=== PATIENT | female | born 1975 | race Caucasian/White ===

== ENCOUNTER 2016-10-28 21:45 | Inpatient (IN) | payer MEDICARE ==
[~2016-10-28] VITALS: Ht 165.1 cm; Wt 73.5 kg
[~2016-10-28 21:45] MED LIST: ACET-704 PO; BRINTELLIX PO; CLON0.5T PO; CLON0.5T3 PO; FLUO20CA16 PO; FLUO20CA8 PO; LEVE500T56 PO; LEVE500T6 PO; LURA40TA PO; LURA80TA PO; MELA3TAB PO; MELO-156 PO; MELO7.5O PO; Nicotine TD; OXCA300T3 PO; TRAZ100T12 PO
--- NOTE | 2016-10-28 21:52 | ED.ADGEN ---
Past History Past Medical History: Alcoholism, Anxiety, Bipolar, Depression, Seizure Past Surgical History: Tubal ligation, Other Smoking: Cigarettes, Less than 1pk/day Alcohol Use: Heavy Drug Use: None Adult General Chief Complaint Chief Complaint " My boy friend is a too good for me.. .. he is too good for me... I am not used having someone who gives a shit... .. and take care of me.. I been so depressed...so I was going to kill myself... I cut my wrist the other days.. and I was going to do it again .. I did cut my wrist a little... but when I went to cut my wrist again.. he grabbed it... and I cut my Rt. hand....".." Yeah I am fucking drunk.. but it is my problem.. boyfriend relationship is a problem.. I am too good for him..I think sometimes.. but most time he is too good for me..." HPI HPI Patient is a 41 year old female who presents with above hx and complaints of depression, suicidal ideation, alcohol intoxication and self cutting. Patient has a 1 x 1 cm circular cut to base of right thumb-causing an avascular avulsion flap of skin. Has some very superficial lacerations to left wrist and healing sutured laceration to left wrist. The patient admits to heavy alcohol use tonight. Consumption of at least 12 beers today. Patient admits to history of depression and anxiety disorder. Hx of suicide attempts as teenage x 2 , one with knife and another with med overdose. .Pt. was advised we were get some baseline labs have her talk to psychiatrist mat. Patient was agreeable but however when ready to have interview, she pretended she was unconscious.. Patient during the sustained attempt to appear unconscious event, had all protective reflexes intact. Did discuss presentation with Dr. Mary Lawson, she advised when she was more responsive she would conduct the interview. This is Pt. second episode of self inflicted lacerations this week. Pt. states she has become more depressed this past month. More thoughts of suicide and some hallucinations or very real like dreams. Pt. depressed and angry with boy friend and their relationship. Recently has had her visitation with son limited. Pt. has had increased insomnia and episodes of panic attacks. Pt. denies any drug use other than alcohol abuse and Rx med.s Pt. does follow with a counselor. Review of Systems Review of Systems Pt. only complaints is depression and anxiety as per HPI Constitutional: Denies fever or chills [] Eyes: Denies change in visual acuity, redness, or eye pain [] HENT: Denies nasal congestion or sore throat [] Respiratory: Denies cough or shortness of breath [] Cardiovascular: No additional information not addressed in HPI [] GI: Denies abdominal pain, nausea, vomiting, bloody stools or diarrhea [] : Denies dysuria or hematuria [] Musculoskeletal: Denies back pain or joint pain [] Integument: Denies rash or skin lesions [] Neurologic: Denies headache, focal weakness or sensory changes [] Endocrine: Denies polyuria or polydipsia [] Family History Family History Pt. refused family hx at this time. Current Medications Current Medications Current Medications Medications (Trade) Dose Ordered Sig/Wilfred Start Time Stop Time Status Last Admin Dose Admin Bupivacaine HCl (Sensorcaine Mpf 0.5%) 30 ml 1X ONCE 10/28/16 22:30 10/28/16 22:31 DC 10/28/16 22:30 30 ML Folic Acid 5 mg STK-MED ONCE 10/28/16 22:41 10/28/16 22:42 DC Lactated Ringer's 1,000 ml @ 1,000 mls/hr Q10H 10/28/16 22:15 10/29/16 01:00 1,000 MLS/HR Lidocaine HCl 20 ml 1X ONCE 10/28/16 22:30 10/28/16 22:31 DC 10/28/16 22:30 20 ML Lorazepam (Ativan) 2 mg 1X PRN PRN 10/29/16 00:15 Multivitamins/ Minerals (Infuvite Adult) 10 ml STK-MED ONCE 10/28/16 22:40 10/28/16 22:41 DC Multivitamins/ Minerals/Folic Acid/Thiamine HCl/ Lactated Ringer's (Infuvite Adult/ Iv Lactated Ringers) 1,011.2 ml @ 1,000 mls/ hr 1X ONCE 10/28/16 22:30 10/28/16 23:30 DC 10/28/16 22:50 1,000 MLS/HR Ondansetron HCl (Zofran) 4 mg PRN Q4HRS PRN 10/29/16 00:15 10/30/16 00:14 Thiamine HCl 200 mg STK-MED ONCE 10/28/16 22:42 10/28/16 22:43 DC Allergies Allergies Allergies Coded Allergies Type Severity Reaction Last Updated Verified Penicillins Allergy Intermediate 06/12/14 No Sulfa (Sulfonamide Antibiotics) Allergy Intermediate 06/12/14 No Physical Exam Physical Exam Constitutional: very intoxicated in appearance. [] HENT: Normocephalic, atraumatic, bilateral external ears normal, oropharynx moist, no oral exudates, nose normal. [] Eyes: PERRLA, EOMI, conjunctiva normal, no discharge. [] Neck: Normal range of motion, no tenderness, supple, no stridor. [] Cardiovascular:Tachycardia Heart rate regular rhythm, no murmur [] Lungs & Thorax: Bilateral breath sounds equal with scattered wheezes on auscultation [] Abdomen: Bowel sounds normal, soft, no tenderness, no masses, no pulsatile masses. Old surgical scars. Skin: Warm, dry, no erythema, no rash. Lacerations as per HPI Back: No tenderness, no CVA tenderness. [] Extremities: No tenderness, no cyanosis, no clubbing, ROM intact, no edema. [] Neurologic: Alert and oriented X 3, no gross motor function deficits,no gross sensory function deficits, dis-coordinated, no focal deficits noted. []Slurred speech. DTR + 2 brachial and patella. Psychologic: Affect depressed and angry, judgement lacks insight, Current Patient Data Lab Results Laboratory Tests Test 10/28/16 17:28 10/28/16 22:20 10/28/16 22:24 10/29/16 00:05 Urine Opiates Screen Neg (NEG) Urine Methadone Screen Neg (NEG) Urine Barbiturates Neg (NEG) Urine Phencyclidine Screen Neg (NEG) Urine Amphetamine/Methamphetamine Neg (NEG) Urine Benzodiazepines Screen Pos (NEG) Urine Cocaine Screen Neg (NEG) Urine Cannabinoids Screen Neg (NEG) Urine Ethyl Alcohol Pos (NEG) White Blood Count 6.6x10^3/uL (4.0-11.0) Red Blood Count 4.26x10^6/uL (3.50-5.40) Hemoglobin 13.4g/dL (12.0-15.5) Hematocrit 40.3% (36.0-47.0) Mean Corpuscular Volume 95fL (79-100) Mean Corpuscular Hemoglobin 32pg (25-35) Mean Corpuscular Hemoglobin Concent 33g/dL (31-37) Red Cell Distribution Width 15.1% (11.5-14.5) H Platelet Count 254x10^3/uL (140-400) Neutrophils (%) (Auto) 52% (31-73) Lymphocytes (%) (Auto) 38% (24-48) Monocytes (%) (Auto) 8% (0-9) Eosinophils (%) (Auto) 1% (0-3) Basophils (%) (Auto) 1% (0-3) Neutrophils # (Auto) 3.5x10^3uL (1.8-7.7) Lymphocytes # (Auto) 2.5x10^3/uL (1.0-4.8) Monocytes # (Auto) 0.5x10^3/uL (0.0-1.1) Eosinophils # (Auto) 0.1x10^3/uL (0.0-0.7) Basophils # (Auto) 0.0x10^3/uL (0.0-0.2) Prothrombin Time 9.9SEC (9.4-11.4) Prothrombin Time INR 1.0 (0.9-1.1) PTT 26SEC (23-33) Maternal Serum HCG Beta Subunit < 1mIU/mL (0-6) Sodium Level 134mmol/L (136-145) L Potassium Level 3.7mmol/L (3.5-5.1) Chloride Level 95mmol/L (98-107) L Carbon Dioxide Level 31mmol/L (21-32) Anion Gap 8 (6-14) Blood Urea Nitrogen 19mg/dL (7-20) Creatinine 1.0mg/dL (0.6-1.0) Estimated GFR (Cockcroft-Gault) 61.1 Glucose Level 88mg/dL (70-99) Calcium Level 8.4mg/dL (8.5-10.1) L Magnesium Level 1.9mg/dL (1.8-2.4) Total Bilirubin 0.2mg/dL (0.2-1.0) Direct Bilirubin 0.1mg/dL (0.0-0.2) Aspartate Amino Transferase (AST) 25U/L (15-37) Alanine Aminotransferase (ALT) 22U/L (14-59) Alkaline Phosphatase 59U/L (46-116) Troponin I Quantitative < 0.017ng/mL (0-0.055) TR-Haj-O-Type Natriuretic Peptide 63pg/mL (0-124) Total Protein 7.7g/dL (6.4-8.2) Albumin 3.6g/dL (3.4-5.0) Lipase 165U/L (73-393) Salicylates Level 6.3mg/dL (2.8-20.0) Salicylate Last Dose Date Unknown Salicylate Last Dose Time Unknown Acetaminophen Level < 2.0mcg/mL (10-30) L Acetaminophen Last Dose Date Unknown Acetaminophen Last Dose Time Unknown Ethyl Alcohol Level 191mg/dL (0-10) H Urine Collection Type Unknown Urine Color Straw Urine Clarity Clear Urine pH 5.5 Urine Specific [place] <=1.005 Urine Protein Neg (NEG-TRACE) Urine Glucose (UA) Negmg/dL (NEG) Urine Ketones (Stick) Negmg/dL (NEG) Urine Blood Neg (NEG) Urine Nitrite Neg (NEG) Urine Bilirubin Neg (NEG) Urine Urobilinogen Dipstick 0.2mg/dL (0.2 mg/dL) Urine Leukocyte Esterase Neg (NEG) Urine RBC Occ/HPF (0-2) Urine WBC Occ/HPF (0-4) Urine Squamous Epithelial Cells Few/LPF Urine Bacteria 0/HPF (0-FEW) O2 Saturation 94% (92-99) Arterial Blood pH 7.37 (7.35-7.45) Arterial Blood pCO2 at Patient Temp 51mmHg (35-46) H Arterial Blood pO2 at Patient Temp 76mmHg (75-108) Arterial Blood HCO3 28mmol/L (21-28) Arterial Blood Base Excess 2mmol/L (-3-3) FiO2 21 EKG EKG I interpretation EKG shows a sinus rhythm at 77 bpm. No findings of acute STEMI with contralateral changes. [] Radiology/Procedures Radiology/Procedures [] Course & Med Decision Making Course & Med Decision Making Pertinent Labs and Imaging studies reviewed. (See chart for details). Discussed presentation, testing and treatment plan with , See report when available. Discussed presentation, testing and tx. plan with Dr. Ohara. Will admit until dextox- from alcohol. Consult with Dr. Lacy in [place] for Depression. [] Final Impression Final Impression 1. Alcohol Intoxication 2. Depression[] 3. Laceration- self cutting 4. Appearance of borderline personality traits 5. Suicidal Ideation 6. Anxiety Disorder 7. Tobacco Abuse 8. Hx. Seizure Disorder Problems: Dragon Disclaimer Dragon Disclaimer This electronic medical record was generated, in whole or in part, using a voice recognition dictation system. TRACY JOHNSON MD Oct 28, 2016 21:52
[2016-10-28] MEDS ORDERED: IV RINGERS SOLUTION,LACTATED 1,000 ML IV SCH (22:15)
[2016-10-28] MEDS ORDERED: BUPIVACAINE MPF 0.5% 30 ML VIAL. SQ ONE (22:30)
[2016-10-28] MEDS ORDERED: MVI, ADULT NO.4 WITH VIT K 10 ML, FOLIC ACID SYRINGE for ER 1 MG, THIAMINE 100 MG in IV... IV ONE ×4 (22:30)
[2016-10-28] MEDS ORDERED: LIDOCAINE 2% 20 ML VIAL. IJ ONE (22:30)
--- NOTE | 2016-10-28 22:36 | EKG ---
[address] [address] Test Date: 2016-10-28 Test Time: 22:35:06 Pat Name: SHALONDA AMOS Department: Room: Gender: F Gambling Counsellor: SHAYNE : 1975 Requested By: TRACY JOHNSON Order Number: [id number] Reading MD: Measurements Intervals [place] Rate: 77 P: 36 MT: 164 QRS: 76 QRSD: 96 T: 53 QT: 376 QTc: 427 Interpretive Statements SINUS RHYTHM NO SPECIFIC ECG ABNORMALITIES RI6.01 Unconfirmed report Compared to ECG 02/21/2015 01:11:03 No significant changes
[2016-10-28] MEDS ORDERED: MVI, ADULT NO.4 WITH VIT K 10 ML VIAL IV ONE (22:40)
[2016-10-28] MEDS ORDERED: FOLIC ACID 5 MG/ML SYRINGE for ER IV ONE (22:41)
[2016-10-28] MEDS ORDERED: THIAMINE 200 MG/2 ML VIAL. IV ONE (22:42)
[2016-10-28 22:46] LABS: BASO % 1 % (0-3); EOS # 0.1 x10^3/uL (0.0-0.7); EOS % 1 % (0-3); HEMATOCRIT 40.3 % (36.0-47.0); HEMOGLOBIN 13.4 g/dL (12.0-15.5); LYMPH # 2.5 x10^3/uL (1.0-4.8); LYMPH % 38 % (24-48); MEAN CORPUSCULAR HEMOGLOBIN 32 pg (25-35); MEAN CORPUSCULAR HGB CONC 33 g/dL (31-37); MEAN CORPUSCULAR VOLUME 95 fL (79-100); MONO # 0.5 x10^3/uL (0.0-1.1); MONO % 8 % (0-9); NEUT # 3.5 x10^3uL (1.8-7.7); NEUT % 52 % (31-73); PLATELET COUNT 254 x10^3/uL (140-400); RED BLOOD COUNT 4.26 x10^6/uL (3.50-5.40); RED CELL DISTRIBUTION WIDTH 15.1 % (11.5-14.5); WHITE BLOOD COUNT 6.6 x10^3/uL (4.0-11.0)
[2016-10-28 22:52] LABS: BARBITURATES NEG (NEG); BENZODIAZEPINES POS (NEG); CANNABINOIDS NEG (NEG); COCAINE NEG (NEG); METHADONE NEG (NEG); OPIATES NEG (NEG); PHENCYCLIDINE NEG (NEG)
[2016-10-28 22:53] LABS: AMPHETAMINE/METHAMPHETAMINE NEG (NEG)
[2016-10-28 22:53] LABS: BILIRUBIN,URINE NEG (NEG); CLARITY,URINE CLEAR; COLOR,URINE STRAW; GLUCOSE,URINE NEG (NEG)
[2016-10-28 22:54] LABS: BACTERIA,URINE 0 /HPF (0-FEW); NITRITE,URINE NEG (NEG); RBC,URINE OCC /HPF (0-2); SQUAMOUS EPITHELIAL CELL,UR FEW /LPF; UROBILINOGEN,URINE 0.2 mg/dL (0.2 mg/dL); WBC,URINE OCC /HPF (0-4)
[2016-10-28 23:07] LABS: ALBUMIN 3.6 g/dL (3.4-5.0); CALCIUM 8.4 mg/dL (8.5-10.1); DIRECT BILIRUBIN 0.1 mg/dL (0.0-0.2); GFR 61.1; MAGNESIUM 1.9 mg/dL (1.8-2.4); POTASSIUM 3.7 mmol/L (3.5-5.1); TOTAL BILIRUBIN 0.2 mg/dL (0.2-1.0); TOTAL PROTEIN 7.7 g/dL (6.4-8.2)
[2016-10-29] VITALS (14 sets, daily range): BP systolic 123–157; BP diastolic 61–93
[2016-10-29 00:05] LABS: SALIC 6.3 mg/dL (2.8-20.0)
[2016-10-29 00:08] LABS: ACETAMIN < 2.0 mcg/mL (10-30)
[2016-10-29 00:13] LABS: BASE EXCESS ABG 2 mmol/L (-3-3); HCO3 ABG 28 mmol/L (21-28); PCO2 ABG 51 mmHg (35-46); PH ABG 7.37 (7.35-7.45); PO2 ABG 76 mmHg (75-108)
[2016-10-29 00:14] LABS: SAT O2 ABG 94 % (92-99)
[2016-10-29] MEDS ORDERED: ONDANSETRON PF 4 MG/2 ML VIAL. IV PRN (00:15)
[2016-10-29] MEDS ORDERED: LORAZEPAM 2 MG/ML VIAL IV PRN (00:15)
[2016-10-29] MEDS: IV RINGERS SOLUTION,LACTATED 1,000 ML IV SCH ×5 (01:00→22:46)
--- NOTE | 2016-10-29 01:01 | ACF ---
Admission Criteria Forms ALCOHOL AND PSYCHOACTIVE SUBSTANCE WITHDRAWAL Clinical Indications for Inpatient Care (Place ' X' for any and all applicable criteria): Ongoing inpatient care may be indicated for substance withdrawal[B][C] with ANY ONE of the following(1)(2)(3)(4)(21): [ ]I. Delirium due to alcohol or sedative[D] withdrawal is present. [ ]II. Marked signs of withdrawal are present as indicated by ANY ONE of the following(15)(22)(23) [ ]a) Heart rate greater than 120 beats per minute is present. [ ]b) Severe vomiting is present (eg, precludes maintenance of oral hydration). [ ]c) Grossly visible tremor is present. [ ]d) Profuse perspiration is present. [ ]e) Temperature greater than 101 degrees F (38.3 degrees C) is present. [ ]f) Other signs of severe withdrawal are present (eg, Altered mental status ) [ ]g) Severe withdrawal identified by standardized assessment score[A] [ ]III. Signs of withdrawal that require continued inpatient treatment as indicated by ANY ONE of the following(15)(22)(23): [ ]a) Inadequate response to pharmacotherapy (eg, benzodiazepines) [ ]b) Outpatient or lower level of care is not feasible or appropriate (eg, unavailable or inappropriate to patient condition or treatment history). [ ]IV. Withdrawal signs with high-risk indicator are present as manifested by ALL of the following[A](15)(22)(23) [ ]a) Signs of withdrawal are present as indicated by ANY ONE of the following: [ ]i. Tachycardia is present. [ ]ii. Nausea or vomiting is present. [ ]iii. Tremor is present. [ ]iv. Increased perspiration is present. [ ]v. Other signs of withdrawal are present. [ ]vi. Withdrawal identified by standardized assessment score [A] [ ]b) Elevated risk due to historical or comorbid factor is present as indicated by ANY ONE of the following: [ ]i. History of delirium due to withdrawal is present. [ ]ii. History of seizures due to withdrawal is present.[E] [ ]iii. Intrinsic seizure disorder (epilepsy) is present. [ ]iv. Patient is . [ ]v. Other significant medical history (eg, severe cardiac disease) is present, which is assessed to be at risk for destabilization due to withdrawal. [ ]V. Serious electrolyte abnormalities (eg, hyponatremia, hypokalemia, hypophosphatemia) requiring correction performable only in inpatient setting(6)(25) [ ]. Severe hypoglycemia requiring glucose infusions performable only in inpatient setting(6) [X]VII. Drug toxicity or instability, such as Altered mental status, respiratory depression, or arrhythmias, that requires inpatient care [ ]VIII. Danger judged unmanageable at lower level of care because of ANY ONE of the following [ ]a) Danger to self [ ]b) Danger to others [ ]c) Grave disability (eg, inability to perform self-care necessary at lower level of care) The original [facility] Care Guidelines content created by [facility] has been revised. The portions of the content which have been revised are identified through the use of italic text or in bold. [facility] Care [facility] has neither reviewed nor approved the modified material. All other unmodified content is copyright [facility] Care [facility]. Please see references footnoted in the original [facility] CareGuidelines edition 2016 Admission Criteria Met?: Yes MOY HERNANDES Oct 29, 2016 01:01
[2016-10-29] MEDS ORDERED: ESTR1TAB39 PO (01:43)
[2016-10-29] MEDS ORDERED: CHOL2000 PO (01:45)
[2016-10-29] MEDS ORDERED: LEVO50TA5 PO (01:46)
[2016-10-29] MEDS ORDERED: MULT-245 PO (01:48)
[2016-10-29] MEDS ORDERED: LIDO700A4 TP (01:51)
[2016-10-29] MEDS ORDERED: LORAZEPAM 1 MG TABLET. ONE (02:26)
[2016-10-29] MEDS: LEVETIRACETAM 500 MG TABLET PO SCH ×3 (02:42→21:25)
[2016-10-29] MEDS ORDERED: LORAZEPAM 1 MG TABLET. PO SCH (03:00)
[2016-10-29] MEDS: LEVOTHYROXINE 50 MCG TABLET PO SCH (06:24)
[2016-10-29 07:02] LABS: ETHANOL 75 mg/dL (0-10); SALIC 7.1 mg/dL (2.8-20.0)
[2016-10-29 07:03] LABS: ACETAMIN < 2.0 mcg/mL (10-30)
[2016-10-29] MEDS ORDERED: LORAZEPAM 1 MG TABLET. PO PRN (08:15)
[2016-10-29] MEDS ORDERED: MULTIVITAMIN I-VITE TABLET. PO SCH (09:00)
[2016-10-29] MEDS ORDERED: [UNRECOGNIZED DRUG - OTHER] PO SCH (09:00)
[2016-10-29] MEDS ORDERED: ESTROGEN ESTER PO SCH (09:00)
[2016-10-29] MEDS ORDERED: TESTOSTERONE PO SCH (09:00)
[2016-10-29] MEDS: MVI, ADULT NO.4 WITH VIT K 10 ML, FOLIC ACID SYRINGE for ER 1 MG, THIAMINE 100 MG in IV... IV SCH ×4 (09:05)
[2016-10-29] MEDS: LIDOCAINE (700MG/PATCH) PATCH. TP SCH (09:06)
[2016-10-29] MEDS: CHOLECALCIFEROL (VITAMIN D3) 1,000 UNIT TABLET PO SCH (09:06)
[2016-10-29] MEDS: NICOTINE 21MG PATCH. TD SCH (10:28)
[2016-10-29] MEDS: KETOROLAC 30 MG/ML VIAL. IV PRN ×2 (11:20→16:39)
--- NOTE | 2016-10-29 14:40 | HP ---
ADMIT DATE: 10/29/2016 REASON FOR ADMISSION: Alcohol intoxication and stabbed self in the thumb, self-cutting. HISTORY OF PRESENT ILLNESS: A 41-year-old female who presented to the Emergency Room where she was found to be intoxicated and also had been self cutting. There were a few other healing lacerations noted. The patient has drunk at least about 12 beers. She states that she was fine 1 minute and then she went off. She got up and went to the kitchen stabbed herself. She also reports hallucinations and hearing things over the last few days. The patient is under the care of Dr. Gong and Dr. Knott her neurologist. She states also that she thinks that the Lyrica that she was put on a couple of weeks ago is the culprit in this feelings of hallucinating, etc. PAST MEDICAL HISTORY: Depression, bipolar disorder, anxiety, hypothyroidism, seizures, tobacco use disorder, and fibromyalgia. MEDICATIONS: The patient stated takes Tylenol, codeine, vitamin D 2000 units a day, clonazepam 0.5 mg at bedtime and 0.5 mg q.i.d., estrogen, testosterone tablet, Prozac 20 mg a day, Keppra 1000 mg twice a day, levothyroxine 50 mcg daily, lidocaine patch b.i.d., Latuda 40 mg daily, Latuda 120 mg at bedtime, melatonin 5 mg daily, Meloxicam 7.5 mg daily, multivitamin 1 daily, Trileptal 300 mg b.i.d., trazodone 200 mg at bedtime, Brintellix 20 mg at bedtime, and Nicoderm patch. SOCIAL HISTORY: The patient recently moved in with her boyfriend 1 week ago. Smokes 1.5 packs per day, down from 2 packs per day. Usually drinks at least 3 beers. Does not drink every day. The patient does smoke marijuana on occasion. REVIEW OF SYSTEMS: Pain all over her body, hurts all over. Denies suicidal ideation, but does state positive for hallucinations and hearing things; visual and auditory hallucinations. OBJECTIVE: VITAL SIGNS: Blood pressure is 144/87, pulse 77, respirations 17, and pulse ox 97% on room air. HEENT: The patient's pupils are normal size, equal, round, and react to light. Extraocular muscles are intact. Nose was patent. Throat was clear. NECK: Supple. LUNGS: Clear to auscultation. CARDIOVASCULAR: Regular rhythm and rate. ABDOMEN: Soft and nontender. EXTREMITIES: Extremities were without edema. The right thumb has some area where the skin has been removed ____ basically. MENTAL STATUS: The patient was calm and cooperative, although she was nervous. She kept looking out to the door, but denies paranoia. She was alert and appropriate. Answer questions appropriately. LABORATORY DATA: Normal CBC and pCO2 was 51 at midnight, otherwise normal. Chemistry profile normal. Coags normal. Urine was dilute. Drug screen positive for alcohol. Benzos to be appropriate. ASSESSMENT: 1. Bipolar disorder. 2. Suicidal gesture. 3. Depression. 4. Anxiety. 5. Alcohol intoxication. 6. Tobacco use disorder. 7. Seizure disorder. 8. Daily alcohol use. 9. Hypothyroidism. 10. Visual and auditory hallucinations. 11. Fibromyalgia. PLAN: Review medications. Psychiatric consult, IV fluids, and we will go from there. We will treat her fibromyalgia with Toradol. PEDRO STARR DO DR: ERICH/didier JOB#: [id number] / [id number]
[2016-10-29] MEDS ORDERED: TOPI-24 PO (16:30)
[2016-10-29] MEDS ORDERED: TIZA4TAB PO (16:30)
[2016-10-29] MEDS ORDERED: DICY20TA3 PO (16:30)
[2016-10-29] MEDS ORDERED: ONDA4TAB12 PO (16:30)
[2016-10-29] MEDS ORDERED: DULO60CA44 PO (16:30)
[2016-10-29] MEDS ORDERED: PREG75CA PO (16:30)
[2016-10-29] MEDS ORDERED: ESTR2TAB PO (16:30)
[2016-10-29] MEDS ORDERED: DIAZ5TAB4 PO (16:30)
[2016-10-29] MEDS ORDERED: DIAZ10TA4 PO (16:30)
[2016-10-29] MEDS ORDERED: LEVE500T6 PO (16:30)
[2016-10-29] MEDS ORDERED: MELA10TA PO (16:30)
[2016-10-29] MEDS ORDERED: tiZANidine 4 MG TABLET. PO PRN (16:45)
[2016-10-29] MEDS: TOPIRAMATE 25 MG TABLET. PO SCH ×2 (16:54→21:24)
--- NOTE | 2016-10-29 20:59 | PDOC ---
Exam Isaias Demential Exam: Isaias Note: Please also refer to the separate dictated note~for this date of service dictated separately.~Patient seen individually. Discussed the patient with Nursing staff reviewed the chart.~Reviewed interim history and current functioning. Reviewed vital signs,~Labs/ Radiology~and current medications noted below. Continue current treatment with the changes noted in the dictated addendum note Assessment: Vital Signs: Vital Signs Date Time Temp Pulse Resp B/P Pulse Ox O2 Delivery O2 Flow Rate FiO2 10/29/16 19:12 98.4 74 16 145/73 97 Room Air I&O Intake and Output 10/29/16 07:00 Intake Total 1507.2 ml Balance 1507.2 ml Intake Oral 250 ml IV Total 1011.2 ml Other 246 ml # Voids 6 # Bowel Movements 1 Labs: Laboratory Tests Test 10/28/16 22:20 10/28/16 22:24 10/29/16 00:05 10/29/16 05:32 White Blood Count 6.6x10^3/uL (4.0-11.0) Red Blood Count 4.26x10^6/uL (3.50-5.40) Hemoglobin 13.4g/dL (12.0-15.5) Hematocrit 40.3% (36.0-47.0) Mean Corpuscular Volume 95fL (79-100) Mean Corpuscular Hemoglobin 32pg (25-35) Mean Corpuscular Hemoglobin Concent 33g/dL (31-37) Red Cell Distribution Width 15.1% (11.5-14.5) H Platelet Count 254x10^3/uL (140-400) Neutrophils (%) (Auto) 52% (31-73) Lymphocytes (%) (Auto) 38% (24-48) Monocytes (%) (Auto) 8% (0-9) Eosinophils (%) (Auto) 1% (0-3) Basophils (%) (Auto) 1% (0-3) Neutrophils # (Auto) 3.5x10^3uL (1.8-7.7) Lymphocytes # (Auto) 2.5x10^3/uL (1.0-4.8) Monocytes # (Auto) 0.5x10^3/uL (0.0-1.1) Eosinophils # (Auto) 0.1x10^3/uL (0.0-0.7) Basophils # (Auto) 0.0x10^3/uL (0.0-0.2) Prothrombin Time 9.9SEC (9.4-11.4) Prothrombin Time INR 1.0 (0.9-1.1) PTT 26SEC (23-33) Maternal Serum HCG Beta Subunit < 1mIU/mL (0-6) Sodium Level 134mmol/L (136-145) L Potassium Level 3.7mmol/L (3.5-5.1) Chloride Level 95mmol/L (98-107) L Carbon Dioxide Level 31mmol/L (21-32) Anion Gap 8 (6-14) Blood Urea Nitrogen 19mg/dL (7-20) Creatinine 1.0mg/dL (0.6-1.0) Estimated GFR (Cockcroft-Gault) 61.1 Glucose Level 88mg/dL (70-99) Calcium Level 8.4mg/dL (8.5-10.1) L Magnesium Level 1.9mg/dL (1.8-2.4) Total Bilirubin 0.2mg/dL (0.2-1.0) Direct Bilirubin 0.1mg/dL (0.0-0.2) Aspartate Amino Transferase (AST) 25U/L (15-37) Alanine Aminotransferase (ALT) 22U/L (14-59) Alkaline Phosphatase 59U/L (46-116) Troponin I Quantitative < 0.017ng/mL (0-0.055) MY-Yjc-R-Type Natriuretic Peptide 63pg/mL (0-124) Total Protein 7.7g/dL (6.4-8.2) Albumin 3.6g/dL (3.4-5.0) Lipase 165U/L (73-393) Thyroid Stimulating Hormone (TSH) 0.325uIU/mL (0.358-3.740) Salicylates Level 6.3mg/dL (2.8-20.0) 7.1mg/dL (2.8-20.0) Salicylate Last Dose Date Unknown Unknown Salicylate Last Dose Time Unknown Unknown Acetaminophen Level < 2.0mcg/mL (10-30) L < 2.0mcg/mL (10-30) L Acetaminophen Last Dose Date Unknown Unknown Acetaminophen Last Dose Time Unknown Unknown Ethyl Alcohol Level 191mg/dL (0-10) H 75mg/dL (0-10) H Urine Collection Type Unknown Urine Color Straw Urine Clarity Clear Urine pH 5.5 Urine Specific [place] <=1.005 Urine Protein Neg (NEG-TRACE) Urine Glucose (UA) Negmg/dL (NEG) Urine Ketones (Stick) Negmg/dL (NEG) Urine Blood Neg (NEG) Urine Nitrite Neg (NEG) Urine Bilirubin Neg (NEG) Urine Urobilinogen Dipstick 0.2mg/dL (0.2 mg/dL) Urine Leukocyte Esterase Neg (NEG) Urine RBC Occ/HPF (0-2) Urine WBC Occ/HPF (0-4) Urine Squamous Epithelial Cells Few/LPF Urine Bacteria 0/HPF (0-FEW) O2 Saturation 94% (92-99) Arterial Blood pH 7.37 (7.35-7.45) Arterial Blood pCO2 at Patient Temp 51mmHg (35-46) H Arterial Blood pO2 at Patient Temp 76mmHg (75-108) Arterial Blood HCO3 28mmol/L (21-28) Arterial Blood Base Excess 2mmol/L (-3-3) FiO2 21 Current Medications: Meds: Current Medications Lactated Ringer's 1,000 ml @ 1,000 mls/hr Q10H IV Last administered on 01:00; Start 10/28/16 at 22:15 Multivitamins/ Minerals/Folic Acid/Thiamine HCl/ Lactated Ringer's (Infuvite Adult/ Iv Lactated Ringers) 1,011.2 ml @ 1,000 mls/ hr 1X ONCE IV Last administered on 10/28/16 22:50; Start 10/28/16 at 22:30; Stop 10/28/16 at 23:30; Status DC Bupivacaine HCl (Sensorcaine Mpf 0.5%) 30 ml 1X ONCE SQ Last administered on 22:30; Start 10/28/16 at 22:30; Stop 10/28/16 at 22:31; Status DC Lidocaine HCl 20 ml 1X ONCE IJ Last administered on 10/28/16 22:30; Start 10/28 at 22:30; Stop 10/28/16 at 22:31; Status DC Multivitamins/ Minerals (Infuvite Adult) 10 ml STK-MED ONCE IV ; Start 10/28/16 at 22:40; Stop 10/28/16 at 22:41; Status DC Folic Acid 5 mg STK-MED ONCE IV ; Start 10/28/16 at 22:41; Stop 10/28/16 at 22:42 ; Status DC Thiamine HCl 200 mg STK-MED ONCE IV ; Start 10/28/16 at 22:42; Stop 10/28/16 at 22 :43; Status DC Ondansetron HCl 4 mg 4 mg PRN Q4HRS PRN IV NAUSEA/VOMITING Last administered on 10/29/16 16:54; Start 10/29/16 at 00:15; Stop 10/30/16 at 00:14 Multivitamins/ Minerals 10 ml/ Folic Acid 1 mg/ Thiamine HCl 100 mg/Lactated Ringer's 1,011.2 ml @ 125 mls/ hr DAILY IV Last administered on 10/29/16 09:05 ; Start 10/29/16 at 09:00 Lactated Ringer's (Iv Lactated Ringers) 1,000 ml @ 160 mls/hr Q6H15M IV Last administered on 10/29/16 16:55; Start 10/29/16 at 01:00 Lorazepam (Ativan) 1 mg QID PO ; Start 10/29/16 at 03:00; Stop 10/29/16 at 08:08; Status DC Lorazepam (Ativan) 2 mg 1X PRN PRN IV seizure; Start 10/29/16 at 00:15 Levetiracetam (Keppra) 1,000 mg BID PO Last administered on 10/29/16 09:06; Start 10/29/16 at 03:00; Stop 10/29/16 at 16:38; Status DC Levothyroxine Sodium (Synthroid) 50 mcg DAILY07 PO Last administered on 06:24; Start 10/29/16 at 07:00 Lidocaine (Lidoderm) 1 patch DAILY TP Last administered on 10/29/16 09:06; Start 10/29/16 at 09:00 Melatonin 6 mg QHS PO ; Start 10/29/16 at 21:00; Stop 10/29/16 at 21:00; Status DC Non-Formulary Medication 2 mg BID PO hormone replacement; Start 10/29/16 at 09:00 ; Stop 10/29/16 at 16:52; Status DC Vitamin D (Vitamin D3) 2,000 unit DAILY PO Last administered on 10/29/16 09:06 ; Start 10/29/16 at 09:00 Multivitamins/ Minerals (I-Elias) 1 tab DAILY PO Last administered on 10/29/16 09:05; Start 10/29/16 at 09:00; Stop 10/29/16 at 17:51; Status DC Lorazepam (Ativan) 1 mg STK-MED ONCE .ROUTE ; Start 10/29/16 at 02:26; Stop at 02:27; Status DC Lorazepam (Ativan) 1 mg PRN QID PRN PO ALCOHOL WITHDRAWAL; Start 10/29/16 at 08: 15 Nicotine (Nicoderm Cq 21mg) 1 patch DAILY TD Last administered on 10/29/16 10: 28; Start 10/29/16 at 09:30 Ketorolac Tromethamine (Toradol) 30 mg PRN Q6HRS PRN IV PAIN Last administered on 10/29/16 16:39; Start 10/29/16 at 09:30; Stop 11/03/16 at 09:29 Clonazepam (Klonopin) 0.25 mg BIDWBKFT/ANJALI PO ; Start 10/30/16 at 08:00; Stop 10/30/16 at 08:00; Status DC Clonazepam (Klonopin) 0.5 mg HS PO ; Start 10/29/16 at 21:00; Stop 10/29/16 at 21: 00; Status DC Fluoxetine HCl (Prozac) 20 mg DAILY PO ; Start 10/30/16 at 09:00; Stop 10/30/16 at 09:00; Status DC Meloxicam (Mobic) 7.5 mg DAILY PO ; Start 10/30/16 at 09:00 Oxcarbazepine (Trileptal) 300 mg BID PO ; Start 10/29/16 at 21:00; Stop 10/29/16 at 21:00; Status DC Trazodone HCl (Desyrel) 200 mg QHS PO ; Start 10/29/16 at 21:00 Non-Formulary Medication 120 mg QHS PO ; Start 10/29/16 at 21:00; Status UNV Non-Formulary Medication 20 mg HS PO DEPRESSION; Start 10/29/16 at 21:00; Stop at 21:00; Status DC Nicotine (Nicoderm Cq 14mg) 1 patch DAILY TD ; Start 10/30/16 at 09:00; Stop 10/30 at 09:00; Status DC Diazepam (Valium) 5 mg BID94 PO ; Start 10/30/16 at 09:00 Dicyclomine HCl (Bentyl) 20 mg PRN Q6HRS PRN PO DIARRHEA; Start 10/29/16 at 16: 45 Duloxetine HCl (Cymbalta) 60 mg HS PO ; Start 10/29/16 at 21:00; Stop 10/29/16 at 21:00; Status DC Estradiol (Estrace) 2 mg BID PO ; Start 10/30/16 at 09:00 Levetiracetam (Keppra) 500 mg BID PO ; Start 10/29/16 at 21:00 Ondansetron HCl (Zofran Odt) 4 mg BID PO ; Start 10/29/16 at 21:00 Pregabalin (Lyrica) 75 mg BID PO ; Start 10/29/16 at 21:00; Stop 10/29/16 at 21:00 ; Status DC Tizanidine HCl (Zanaflex) 4 mg PRN TID PRN PO MUSCLE SPASMS; Start 10/29/16 at 16:45 Topiramate (Topamax) 25 mg BID PO Last administered on 10/29/16t 16:54; Start at 17:15 Diazepam (Valium) 20 mg HS PO ; Start 10/29/16 at 21:00 Melatonin 9 mg HS PO ; Start 10/29/16 at 21:00 Duloxetine HCl (Cymbalta) 90 mg DAILY PO ; Start 10/29/16 at 19:00 Active Scripts Active Reported Lyrica (Pregabalin) 75 Mg Capsule 1 Cap PO BID Diazepam 10 Mg Tablet 20 Mg PO HS Diazepam 5 Mg Tablet 5 Mg PO [id number] Dicyclomine Hcl 20 Mg Tablet 1 Tab PO PRN Q6HRS PRN Ondansetron Odt (Ondansetron) 4 Mg Tab.rapdis 4 Mg PO BID Tizanidine Hcl (Tizanidine HCl) 4 Mg Tablet 4 Mg PO PRN TID PRN Topiramate 25 Mg Tablet 1 Tab PO BID Duloxetine Hcl 60 Mg Capsule.dr 60 Mg PO HS Melatonin 10 Mg Tablet 10 Mg PO HS Estradiol 2 Mg Tablet 1 Tab PO BID Levetiracetam 500 Mg Tablet 1 Tab PO BID Lidoderm (Lidocaine) 700 Mg Adh..patch 700 Mg TP BID Multi Vitamin Daily (Multivitamin) 1 Each Tablet 1 Each PO DAILY Levothyroxine Sodium 50 Mcg Tablet 1 PO DAILY Vitamin D (Cholecalciferol (Vitamin D3)) 2,000 Unit Capsule 1 Cap PO DAILY Latuda (Lurasidone Hcl) 80 Mg Tablet 120 Mg PO QHS Meloxicam 7.5 Mg Tablet 7.5 Mg PO DAILY Diagnosis: Problems: (1) Mental status change (2) Mental status change (3) Alcoholism (4) Seizures (5) Suicidal behavior MARLON OSBORN MD Oct 29, 2016 20:59
[2016-10-29] MEDS ORDERED: CLONAZEPAM 0.5 MG TABLET PO SCH (21:00)
[2016-10-29] MEDS ORDERED: LURASIDONE 40 MG TABLET. PO SCH (21:00)
[2016-10-29] MEDS ORDERED: DIAZEPAM 5 MG TABLET PO SCH (21:00)
[2016-10-29] MEDS ORDERED: DULOXETINE HCL 60 MG CAPSULE.DR. PO SCH (21:00)
[2016-10-29] MEDS ORDERED: BRINTELLIX 20 MG PO SCH (21:00)
[2016-10-29] MEDS ORDERED: PREGABALIN 75 MG CAPSULE PO SCH (21:00)
[2016-10-29] MEDS ORDERED: traZODone 100 MG TABLET. PO SCH (21:00)
[2016-10-29] MEDS ORDERED: MELATONIN 3 MG TABLET PO SCH ×2 (21:00)
[2016-10-29] MEDS: DULOXETINE HCL 30 MG CAPSULE.DR. PO SCH (21:23)
[2016-10-29] MEDS: ONDANSETRON ODT 4 MG TAB.RAPDIS PO SCH (21:24)
[2016-10-29] MEDS: DICYCLOMINE HCL 20 MG TABLET PO PRN (21:55)
[2016-10-30 00:01] VITALS: BP 145/79
[2016-10-30] MEDS: KETOROLAC 30 MG/ML VIAL. IV PRN ×2 (02:45→08:29)
[2016-10-30 04:00] VITALS: BP 179/71
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
--- NOTE | 2016-10-30 05:23 | CONS ---
DATE OF CONSULTATION: 10/29/2016 IDENTIFYING DATA: The patient is a 41-year-old female referred by Dr. Ohara/Dr. Glo Prakash and seen in ICU bed 2, [facility], for a psychiatric consult for recommendations on managing her bipolar disorder after the patient was hospitalized with a suicide gesture by cutting her hand after having excessive amount of beer. The patient has had prior hospitalizations for similar gestures. CHIEF COMPLAINT: "I have been more depressed for the past 2 months since I was started on Lyrica. I stopped it yesterday. I was drinking and I cut on my hand. I am not suicidal now." HISTORY OF PRESENT ILLNESS: The patient reportedly has a history of bipolar disorder and has been followed by Dr. Gong, outpatient and not [place]. She is currently being treated on Latuda 120 mg a day, Cymbalta 60 mg daily, Valium 2.5 mg in the morning and 2 mg at night and is also taking Keppra 500 mg twice a day for seizure disorder. She uses about 6-8 beers every day together with her boyfriend. She is currently on disability for her bipolar disorder and states she has been getting more depressed since she started Lyrica for chronic pain about 2 months back. She again denies current suicidal ideation or psychotic symptoms. PAST PSYCHIATRIC HISTORY: Positive for bipolar disorder. PAST MEDICAL HISTORY: Positive for seizure disorder, hypothyroidism, tobacco use disorder, fibromyalgia. CURRENT MEDICATIONS: She is on vitamin D supplements, Klonopin was changed to Valium 5 mg b.i.d., 20 mg at bedtime; Cymbalta has been changed by me as noted below from 60 mg a day to 90 mg a day, Keppra 500 b.i.d., melatonin 7.5 mg at bedtime and she is also started on Topamax 25 mg b.i.d., trazodone 200 mg at bedtime. DRUG ALLERGIES: PENICILLIN, SULFA. CODE STATUS: She is a full code. FAMILY HISTORY: Noncontributory. SOCIAL HISTORY: The patient is on disability, lives with her boyfriend. Alcohol abuse history noted above 6-8 cans of beer a day for many years. No drug abuse history. The patient admits to having used marijuana about 1 week ago. MENTAL STATUS EXAMINATION: The patient is reasonably oriented. Speech is coherent, abstraction fair, computation reasonable. No active suicidal or homicidal ideation. Intellect average. Insight appropriate to standard questioning. VITAL SIGNS: Temperature 98.2, pulse 82, BP 155/88, respirations 17. REVIEW OF SYSTEMS: No CV, , pulmonary, eye, ENT system symptoms on review. IMPRESSION: Bipolar 1 disorder, mixed, status post suicide gesture; history of alcohol abuse and intoxication, seizure disorder, fibromyalgia. Rest diagnoses as noted in her other records. PLAN: From a psychiatric standpoint, I suggested starting Trileptal for her bipolar disorder at 300 mg twice a day, increasing Cymbalta to 90 mg a day, maintaining Latuda for now. The Valium should be tapered. Reportedly, she has an outpatient psychiatric followup with Dr. Gong in about 10 days and she should perhaps stop the Lyrica given her being convinced that she has been suicidal since she has taken the Lyrica. Dr. Prakash, thank you for the opportunity to participate in your patient's care. We will follow with you. I also requested a Neurology consult with Dr. Knott. MARLON OSBORN MD DR: SOPHIA/didier JOB#: [id number] / [id number]
[2016-10-30] MEDS: IV RINGERS SOLUTION,LACTATED 1,000 ML IV SCH (05:26)
[2016-10-30 06:00] LABS: BASO % 1 % (0-3); EOS # 0.1 x10^3/uL (0.0-0.7); EOS % 2 % (0-3); HEMATOCRIT 34.6 % (36.0-47.0); HEMOGLOBIN 11.4 g/dL (12.0-15.5); LYMPH # 2.7 x10^3/uL (1.0-4.8); LYMPH % 47 % (24-48); MEAN CORPUSCULAR HEMOGLOBIN 32 pg (25-35); MEAN CORPUSCULAR HGB CONC 33 g/dL (31-37); MEAN CORPUSCULAR VOLUME 96 fL (79-100); MONO # 0.6 x10^3/uL (0.0-1.1); MONO % 11 % (0-9); NEUT # 2.2 x10^3uL (1.8-7.7); NEUT % 39 % (31-73); PLATELET COUNT 219 x10^3/uL (140-400); RED BLOOD COUNT 3.62 x10^6/uL (3.50-5.40); RED CELL DISTRIBUTION WIDTH 15.3 % (11.5-14.5); WHITE BLOOD COUNT 5.6 x10^3/uL (4.0-11.0)
[2016-10-30 06:17] LABS: ALBUMIN 2.8 g/dL (3.4-5.0); ALBUMIN/GLOBULIN RATIO 0.8 (1.0-1.7); CALCIUM 8.1 mg/dL (8.5-10.1); CREATININE 0.9 mg/dL (0.6-1.0); POTASSIUM 3.7 mmol/L (3.5-5.1); TOTAL BILIRUBIN 0.3 mg/dL (0.2-1.0); TOTAL PROTEIN 6.2 g/dL (6.4-8.2)
[2016-10-30] MEDS: LEVOTHYROXINE 50 MCG TABLET PO SCH (06:41)
[2016-10-30 07:07] VITALS: BP 159/78
[2016-10-30] MEDS ORDERED: CLONAZEPAM 0.5 MG TABLET PO SCH (08:00)
[2016-10-30] MEDS ORDERED: OXCA300T PO (08:07)
[2016-10-30] MEDS ORDERED: DULO30CA2 PO (08:07)
[2016-10-30] MEDS: TOPIRAMATE 25 MG TABLET. PO SCH (08:14)
[2016-10-30] MEDS: ONDANSETRON ODT 4 MG TAB.RAPDIS PO SCH (08:15)
[2016-10-30] MEDS: LEVETIRACETAM 500 MG TABLET PO SCH (08:16)
[2016-10-30] MEDS: CHOLECALCIFEROL (VITAMIN D3) 1,000 UNIT TABLET PO SCH (08:16)
[2016-10-30] MEDS: DICYCLOMINE HCL 20 MG TABLET PO PRN (08:16)
[2016-10-30] MEDS: NICOTINE 21MG PATCH. TD SCH (08:17)
[2016-10-30] MEDS: DULOXETINE HCL 30 MG CAPSULE.DR. PO SCH (08:18)
[2016-10-30] MEDS: LIDOCAINE (700MG/PATCH) PATCH. TP SCH (08:18)
[2016-10-30] MEDS ORDERED: NICOTINE 14MG PATCH. TD SCH (09:00)
[2016-10-30] MEDS ORDERED: ESTRADIOL 1 MG TABLET PO SCH (09:00)
[2016-10-30] MEDS ORDERED: FLUOXETINE HCL 20 MG CAPSULE PO SCH (09:00)
[2016-10-30] MEDS ORDERED: MELOXICAM 7.5 MG TABLET PO SCH (09:00)
[2016-10-30] MEDS ORDERED: DIAZEPAM 5 MG TABLET PO SCH (09:00)
[2016-10-30] MEDS: MVI, ADULT NO.4 WITH VIT K 10 ML, FOLIC ACID SYRINGE for ER 1 MG, THIAMINE 100 MG in IV... IV SCH ×4 (09:00)
[2016-10-30] MEDS ORDERED: LURASIDONE 40 MG TABLET. PO SCH (09:00)
--- NOTE | 2016-10-30 10:33 | PN ---
DATE: SUBJECTIVE: The patient denies any new medical or neurological complaints. She has not had any recurrent seizure or seizure-like activities. She slept well and she eats and drinks well. OBJECTIVE: GENERAL: Well-developed, well-nourished white female, not in acute distress. VITAL SIGNS: Blood pressure 159/78, respiratory rate 32, pulse is 49, oxygen saturation is 97% on room air and temperature 97.6. HEENT: Normocephalic, atraumatic, otherwise unremarkable. NECK: Supple. Negative for carotid bruit, lymphadenopathy or thyromegaly. LUNGS: Clear to A and P. CARDIOVASCULAR: Regular rate and rhythm, normal S1, S2. ABDOMEN: Soft. Bowel sounds positive. EXTREMITIES: Negative for cyanosis, clubbing or pitting edema. NEUROLOGICAL EXAMINATION: Mental Status: The patient is alert and oriented x 3. The speech is fluent. There is no language dysfunction. Memory, judgment and abstract thinking are normal. The patient denies hallucination or delusion. Cranial nerves are intact. Motor Examination: No focal muscle bulk was seen. The tone was normal. The strength was 5/5 throughout. Sensory examination revealed normal pinprick, light touch, vibratory and position senses. Deep tendon reflexes are symmetric and active without pathology responses. Gait and coordination is normal. IMPRESSION: 1. Status post suicidal ideations. 2. Recurrent seizure-like activities, rule out alcohol withdrawal seizure versus epileptic seizures. 3. History of seizure disorder of unknown etiology. 4. Multiple medical problems include hypothyroidism, hypertension and fibromyalgia. 5. Multiple psychiatric problems include depression, bipolar disorder and suicidal ideations. 6. Longstanding history of alcohol abuse. RECOMMENDATIONS: 1. Continue with current medical and psychiatric care. 2. We will arrange for an EEG on outpatient basis tomorrow, Saturday. M Jaky DAVID MD DR: ANDREW/didier JOB#: [id number] / [id number]
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
== END 2016-10-30 11:13 | disposition home or self-care (01) | DRG 897 ==
LOC: ER 21:51 → ICU 10-29 00:26
PROVIDERS: ADMIT Internal Medicine; ATTEND Internal Medicine
DX: F10.229 Alcohol dependence with intoxication, unspecified (principal); F31.60 Bipolar disorder, current episode mixed, unspecified; R45.851 Suicidal ideations; E87.1 Hypo-osmolality and hyponatremia; R44.0 Auditory hallucinations; G31.2 Degeneration of nervous system due to alcohol; E03.9 Hypothyroidism, unspecified; F12.90 Cannabis use, unspecified, uncomplicated; F17.210 Nicotine dependence, cigarettes, uncomplicated; F41.0 Panic disorder [episodic paroxysmal anxiety]; G40.409 Other generalized epilepsy and epileptic syndromes, not intractable, without status epilepticus; G89.29 Other chronic pain; G47.00 Insomnia, unspecified; I10 Essential (primary) hypertension; M79.7 Fibromyalgia; S61.512A Laceration without foreign body of left wrist, initial encounter; X78.1XXA Intentional self-harm by knife, initial encounter; Y93.89 Activity, other specified; Y92.89 Other specified places as the place of occurrence of the external cause; Y99.8 Other external cause status; Z82.49 Family history of ischemic heart disease and other diseases of the circulatory system; Z83.3 Family history of diabetes mellitus; Z79.899 Other long term (current) drug therapy; Z91.5 Personal history of self-harm
CPT/HCPCS: 36415; 80048; 80053; 80076; 81001; 82805; 83690; 83735; 83880; 84443; 84484; 84702; 85027; 85610; 85730; 87641; 93005; 96365; 96372; G0480; G0481; G6038; J1885; J2405; J3490; J7120; Q0162; 80196; 99285-25; J2001

== ENCOUNTER 2016-12-19 14:49 | Emergency (ER) | payer MEDICARE ==
[~2016-12-19] VITALS: Ht 165.1 cm; Wt 68.1 kg
[~2016-12-19 14:49] MED LIST changes: +CHOL2000 PO; +DIAZ10TA4 PO; +DIAZ5TAB4 PO; +DICY20TA3 PO; +DULO30CA2 PO; +DULO60CA44 PO; +ESTR1TAB39 PO; +ESTR2TAB PO; +LEVO50TA5 PO; +LIDO700A4 TP; +MELA10TA PO; -MELA3TAB PO; +MELA3TAB2 PO; -MELO-156 PO; +MELO7.5T29 PO; +MULT-245 PO; +ONDA4TAB12 PO; +OXCA300T PO; +PREG75CA PO; +TIZA4TAB PO; +TOPI25TA7 PO; +TRAZ-90 PO; -TRAZ100T12 PO
[2016-12-19 14:58] VITALS: BP 128/78
--- NOTE | 2016-12-19 15:32 | PHYS DOC ---
Past History Past Medical History: Alcoholism, Anxiety, Bipolar, Depression, IBS, Seizure Past Surgical History: Hysterectomy, Tubal ligation, Other Smoking: Cigarettes, Less than 1pk/day Alcohol Use: Heavy Drug Use: None Adult General Chief Complaint Chief Complaint: SKIN PROBLEM [facility] HPI Patient is a 41 year old female who presents with a generalized rash that started this morning with increased itching. Patient states she has not come in contact with anything new. Patient denies any shortness of breath or wheezing. Patient denies any tongue swelling. Pertinent exam findings: Macular papular rash to extremity and trunk consistent with contact dermatitis ED course: Patient was seen and evaluated and basophils exam findings 10 mg Decadron IM, Benadryl 50 mg by mouth, Pepcid 20 mg by mouth were ordered MMD: After reviewing the chart, CC/HPI/PMH, physical exam I do not bleed the patient has a (rash 14 further workup and admission at this time. I believe the patient' s rash is consistent with a contact dermatitis and can be treated with oral steroids and discharged home. Recommend patient follow up PCP in 1-2 days. Additional verbal discharge instructions were provided to the patient and that if symptoms get worse or any new symptoms arise that are worrisome to the patient she is return the emergency room immediately. Review of Systems Review of Systems Constitutional: Denies fever or chills [] Eyes: Denies change in visual acuity, redness, or eye pain [] HENT: Denies nasal congestion or sore throat [] Respiratory: Denies cough or shortness of breath [] Cardiovascular: No additional information not addressed in HPI [] GI: Denies abdominal pain, nausea, vomiting, bloody stools or diarrhea [] : Denies dysuria or hematuria [] Musculoskeletal: Denies back pain or joint pain [] Integument: Rash Allergies Allergies Allergies Coded Allergies Type Severity Reaction Last Updated Verified Penicillins Allergy Intermediate 06/12/14 No Sulfa (Sulfonamide Antibiotics) Allergy Intermediate 06/12/14 No I S O L A T I O N *CONTACT* Allergy Unknown 10/30/16 Yes Physical Exam Physical Exam Constitutional: Well developed, well nourished, no acute distress, non-toxic appearance. [] HENT: Normocephalic, atraumatic, bilateral external ears normal, oropharynx moist, no oral exudates, nose normal. [] Eyes: PERRLA, EOMI, conjunctiva normal, no discharge. [] Neck: Normal range of motion, no tenderness, supple, no stridor. [] Cardiovascular:Heart rate regular rhythm, no murmur [] Lungs & Thorax: Bilateral breath sounds clear to auscultation [] Abdomen: Bowel sounds normal, soft, no tenderness, no masses, no pulsatile masses. [] Skin: Maculopapular rash that blanches to the extremities and trunk Back: No tenderness, no CVA tenderness. [] Extremities: No tenderness, no cyanosis, no clubbing, ROM intact, no edema. [] Neurologic: Alert and oriented X 3, normal motor function, normal sensory function, no focal deficits noted. [] Psychologic: Affect normal, judgement normal, mood normal. [] Current Patient Data Vital Signs Vital Signs Date Time Temp Pulse Resp B/P (MAP) Pulse Ox O2 Delivery O2 Flow Rate FiO2 12/19/16 14:58 70 20 99 Room Air EKG EKG [] Radiology/Procedures Radiology/Procedures [] Course & Med Decision Making Course & Med Decision Making Pertinent Labs and Imaging studies reviewed. (See chart for details) [] Dragon Disclaimer Dragon Disclaimer This chart was dictated in whole or in part using Voice Recognition software in a busy, high-work load, and often noisy Emergency Department environment. It may contain unintended and wholly unrecognized errors or omissions. Departure Departure: Impression: Primary Impression: Contact dermatitis Disposition: HOME, SELF-CARE Condition: IMPROVED Referrals: KARO ANDERSON APRN (PCP) Patient Instructions: Chest Contusion, [id number] Additional Instructions: Please follow up with family doctor in one to 2 days Scripts Prednisone (PREDNISONE) 50 Mg Tablet 50 MG PO DAILY for 5 Days, #5 TAB Prov: CAMILLE BELLAMY DO 12/19/16 Problem Qualifiers Primary Impression: Contact dermatitis Contact dermatitis type: unspecified Contact dermatitis trigger: unspecified trigger Qualified Codes: L25.9 - Unspecified contact dermatitis, unspecified cause CAMILLE BELLAMY DO December 19, 2016 15:32
[2016-12-19] MEDS ORDERED: PRED50TA PO (15:40)
[2016-12-19] MEDS ORDERED: diphenhydrAMINE HCL 50 MG CAPSULE PO ONE (15:45)
[2016-12-19] MEDS ORDERED: DEXAMETHASONE SOD PHOS 10 MG/ML VIAL IM ONE (15:45)
[2016-12-19] MEDS ORDERED: diphenhydrAMINE HCL 25 MG CAPSULE PO ONE (15:45)
[2016-12-19] MEDS ORDERED: FAMOTIDINE 20 MG TABLET PO ONE (15:45)
[2016-12-19] MEDS ORDERED: KETOROLAC 60 MG/2 ML VIAL. IM ONE (16:00)
== END 2016-12-19 16:07 | disposition home or self-care (01) ==
LOC: ER 14:49
DX: L25.9 Unspecified contact dermatitis, unspecified cause (principal); K58.9 Irritable bowel syndrome, unspecified; F41.9 Anxiety disorder, unspecified; F10.20 Alcohol dependence, uncomplicated; F17.210 Nicotine dependence, cigarettes, uncomplicated; F31.9 Bipolar disorder, unspecified; Z88.0 Allergy status to penicillin; Z88.2 Allergy status to sulfonamides; Z91.041 Radiographic dye allergy status
CPT/HCPCS: 96372; 99284; J1100; J1885; Q0163